=== PATIENT | male | born 1990 | race Caucasian/White ===

== ENCOUNTER 2019-06-14 15:18 | Emergency (ER) | payer BC, SELFPAY ==
[2019-06-14 15:31] VITALS: BP 130/79; PULSE 90; RESP 18; TEMP 36.8; O2SAT 100
--- NOTE | 2019-06-14 15:41 | ED.ABDPAIN ---
HPI - Abdominal Pain General Chief Complaint: Abdominal Pain Stated Complaint: Stomach Pain Time Seen by Provider: 06/14/19 15:41 Source: patient Mode of arrival: ambulatory Limitations: no limitations History of Present Illness HPI narrative: The patient, who is a smoker/ occ drinker, with c/o infraumbilical and epigastric ABD pain x 3 days. Pt notes his pain worsens with lifting or strenuous activity [ and he works as electrician's helper ] . He denies fever, back pain, changes to bowel habits, pain or swelling to genitals, N/V/D, dysuria, or frequent/infrequent urination. Pt notes a Hx of scar from cyst removal to his LUQ, last BM was two days ago. MD elicited complaint: abdominal pain Onset (ago): day(s) (3) Location: epigastric and other (infraumbilical ) Exacerbating factors: movement and other (heavy lifting) Related Data Allergies Allergy/AdvReac Type Severity Reaction Status Date / Time No Known Allergies Allergy Unverified 01/30/18 06:51 Review of Systems Review of Systems: Narrative: General/Constitutional: Denies: weight loss,fever Eyes: Denies: Redness,discharge Ears/Nose/Throat: Denies: Epistaxis,ear discharge Respiratory: Denies: Hemoptysis Gastrointestinal: Denies: Vomiting, Bleeding-rectal Skin: Denies: Lumps, eruption Neurologic: Denies: Focal Weakness,Sz Hematologic: Denies: Petechiae/Purpura Psychiatric: Denies: Suicidal ideation All Other Systems: Reviewed and Negative All systems reviewed & are unremarkable except as noted in HPI and below [facility] Comments At time of signature, agree with nursing past medical, surgical, social and family history. There is no relevant family history pertinent to the presenting complaint. Exam Narrative: Exam Narrative: General Appearance: Obese, Well appearing, No distress; points to epigastrium just site EYE: PERRLA, Conjunctiva clear Ears: External ear normal Nose: Normal nose Mouth/Throat: Normal appearing, Normal lips Neck: Supple Respiratory: Airway patent, No respiratory distress Cardiovascular: RRR Abdomen: Soft, Non-tender, No massess, No organomegaly (no rebound/ surgical signs), Normal BS Musculoskeletal: Full ROM Skin: Warm, Dry; testes nontender Neurological: A&O x3, CN II-X intact Psychiatric: Normal mood, Normal affect Course Vital Signs Vital signs: Vital Signs Temperature 98.2 F 06/14/19 15:31 Pulse Rate 90 06/14/19 15:31 Respiratory Rate 18 06/14/19 15:31 Blood Pressure 130/79 06/14/19 15:31 Pulse Oximetry 100 06/14/19 15:31 Temperature 98.2 F 06/14/19 15:31 Pulse Rate 90 06/14/19 15:31 Respiratory Rate 18 06/14/19 15:31 Blood Pressure 130/79 06/14/19 15:31 Pulse Oximetry 100 06/14/19 15:31 Discharge Plan Discharge Clinical Impression: Epigastric abdominal pain Patient Disposition: Home, Self-Care Condition: Stable Instructions: Abdominal Pain (ED) Additional Instructions: Go to hospital if not improved or worsens Prescriptions: New famotidine [Pepcid AC] 20 mg tablet 20 mg PO DAILY Qty: 30 RF: 0 tramadol 50 mg tablet 50 mg PO Q6H PRN (Reason: pain) Qty: 15 RF: 1 Lidocaine Viscous 2 % solution 5 ml MUCOUS MEM QID PRN (Reason: pain) Qty: 100 RF: 0 Interventions: Discharge Disposition Last Done: 06/14/19 16:07 Follow-up/Referrals: PHYSICIAN,RECOVERY OPERATOR [Primary Care Provider] - Discharge Date/Time: 06/14/19 16:00
== END 2019-06-14 16:00 | disposition home or self-care (01) ==
PROVIDERS: Emergency Provider Emergency Medicine
DX: R10.13 Epigastric pain (principal)
CPT/HCPCS: 99213; G0463